=== PATIENT | male | born 1995 | race African-American/Black ===

== ENCOUNTER 2017-11-30 15:22 | Emergency (ER) | payer BC ==
[~2017-11-30] VITALS: Ht 188 cm; Wt 89.9 kg
[~2017-11-30 15:22] MED LIST: ANAPROX DS550 M1 PO
[2017-11-30 16:32] LABS: HEMATOCRIT 38.9 % (38.0-50.0); HEMOGLOBIN 13.5 G/DL (12.5-16.6); MCH 31.7 PG (29.0-34.0); MCHC 34.7 G/DL (30.0-36.0); MCV 91.3 FL (86-99); PLATELET COUNT 181 K/uL (156-360); RBC DIS.WIDTH-CV 13.1 % (11.8-14.6); RBC DIS.WIDTH-SD 44.1 % (39-53); RED BLOOD COUNT 4.26 M/uL (4.00-5.50); WHITE BLOOD COUNT 10.9 K/uL (4.1-10.2)
[2017-11-30 16:42] LABS: CHLORIDE 107 mEq/L (99-109); POTASSIUM 4.4 mEq/L (3.7-5.4); SODIUM 140 mEq/L (136-147)
[2017-11-30 16:44] LABS: GLUCOSE 139 mg/dL (70-99)
[2017-11-30 16:47] LABS: CREATININE 0.9 mg/dL (0.6-1.3); GFR ESTIMATE (CALCULATED) > 59 mL/min/ (58.99-99999)
[2017-11-30 16:48] LABS: UREA NITROGEN (BUN) 10 mg/dL (9-23)
[2017-11-30] MEDS ORDERED: KEFLEX500 MG PO (17:23)
[2017-11-30] MEDS ORDERED: ULTRAM50 MG PO (17:24)
[2017-11-30 17:37] VITALS: BP 149/95
== END 2017-11-30 17:24 | disposition home or self-care (01) ==
LOC: EME 15:22
PROVIDERS: Nurse Practitioner Family
DX: L03.114 Cellulitis of left upper limb (principal); S60.569A Insect bite (nonvenomous) of unspecified hand, initial encounter; R22.32 Localized swelling, mass and lump, left upper limb; W57.XXXA Bitten or stung by nonvenomous insect and other nonvenomous arthropods, initial encounter; F17.200 Nicotine dependence, unspecified, uncomplicated
CPT/HCPCS: 80048; 85027; 93971; 99281; 99284